=== PATIENT | female | born 1990 | race Caucasian/White ===

== ENCOUNTER 2020-01-25 11:45 | Inpatient (IN) | payer OTHER ==
[~2020-01-25] VITALS: Ht 154.9 cm; Wt 60.0 kg
[2020-01-25] MEDS ORDERED: OXYTOCIN 30U/ 0.9% NaCL 500ML 500 ML IV ONE (12:12)
[2020-01-25] MEDS ORDERED: D5%-LACTATED RINGERS 1,000 ML IV SCH (12:12)
[2020-01-25] MEDS ORDERED: OXYTOCIN 30U/ 0.9% NaCL 500ML 500 ML IV PRN (12:12)
[2020-01-25] MEDS: LACTATED RINGERS 1,000 ML IV SCH ×5 (12:20→23:05)
[2020-01-25] MEDS ORDERED: NEWBORN KIT ONE (12:28)
[2020-01-25] MEDS ORDERED: MISOPROSTOL 200 MCG TABLET ONE (12:29)
[2020-01-25] MEDS ORDERED: LIDOCAINE 1%, 20ML ONE (12:29)
[2020-01-25] MEDS ORDERED: OXYTOCIN 30U/ 0.9% NaCL 500ML 500 ML ONE ×2 (12:29→17:53)
[2020-01-25] MEDS ORDERED: METOCLOPRAMIDE 5 MG/ML, 2ML IVPush PRN (12:30)
[2020-01-25] MEDS ORDERED: FENTANYL PF 100 MCG/2ML IVPush PRN (12:30)
[2020-01-25] MEDS ORDERED: SODIUM CITRATE/CITRIC ACID 30 ML UDC PO PRN (12:30)
[2020-01-25] MEDS ORDERED: ONDANSETRON 2MG/ML, 2ML IVPush PRN ×3 (12:30→17:30)
[2020-01-25] MEDS ORDERED: TERBUTALINE 1 MG/ML, 1ML SQ PRN (12:30)
[2020-01-25] MEDS ORDERED: FENTANYL PF 100 MCG/2ML IV PRN (12:30)
[2020-01-25] MEDS ORDERED: CALCIUM CARBONATE 500 MG TAB.CHEW PO PRN (12:30)
[2020-01-25] MEDS ORDERED: TERBUTALINE 1 MG/ML, 1ML IVPush PRN (12:30)
[2020-01-25 12:38] LABS: BASOPHILS # (AUTO) 0.02 x10^3/uL (0-0.1); BASOPHILS % (AUTO) 0 % (0-1); EOSINOPHILS # (AUTO) 0.04 x10^3/uL (0-0.4); EOSINOPHILS % (AUTO) 1 % (1-7); LYMPHOCYTES # (AUTO) 1.31 x10^3/uL (1-3.4); LYMPHOCYTES % (AUTO) 20 % (22-44); MD NO; MEAN CORPUSCULAR HEMOGLOBIN 29.8 pg (27.0-34.8); MEAN CORPUSCULAR VOLUME 90.3 fL (80-100); MEAN PLATELET VOLUME 7.6 fL (7.4-10.4); MONOCYTES # (AUTO) 0.61 x10^3/uL (0.2-0.8); MONOCYTES % (AUTO) 9 % (2-9); NEUTROPHILS # (AUTO) 4.73 x10^3/uL (1.8-6.8); NEUTROPHILS % (AUTO) 70 % (42-75); PLATELET COUNT 285 x10^3/uL (130-400); RED BLOOD COUNT 3.14 x10^6/uL (3.82-5.3)
[2020-01-25] MEDS ORDERED: BUPIVACAINE 0.25% ONE (12:39)
[2020-01-25] MEDS ORDERED: FENTANYL/BUPIV./NS/PF 250 ML EPIDCONT ONE (12:39)
[2020-01-25 13:17] LABS: MICROSCOPIC INDICATED
[2020-01-25] MEDS ORDERED: FENTANYL/BUPIV./NS/PF 250 ML EPIDCONT SCH ×2 (15:05→17:28)
[2020-01-25] MEDS ORDERED: DIPHENHYDRAMINE 50 MG/ML, 1ML IVPush PRN ×2 (15:30→17:30)
[2020-01-25] MEDS ORDERED: LACTATED RINGERS 1,000 ML IVBOLUS PRN ×2 (15:30→17:30)
[2020-01-25] MEDS ORDERED: NALOXONE 0.4 MG/ML, 1ML IVPush PRN ×2 (15:30→17:30)
[2020-01-25] MEDS ORDERED: EPHEDRINE 50 MG/ML, 1ML IVPush PRN ×2 (15:30→17:30)
[2020-01-25] MEDS ORDERED: LACTATED RINGERS 1,000 ML IV SCH (17:28)
[2020-01-25] MEDS ORDERED: OXYTOCIN 30U/ 0.9% NaCL 500ML 500 ML IV SCH (18:04)
[2020-01-25] MEDS ORDERED: DOCUSATE 100 MG CAPSULE PO PRN (18:30)
[2020-01-25] MEDS ORDERED: ONDANSETRON 2MG/ML, 2ML IV PRN (18:30)
[2020-01-25] MEDS ORDERED: CARBOPROST TROMETHAMINE 250 MCG/ML, 1ML IM PRN (18:30)
[2020-01-25] MEDS ORDERED: MISOPROSTOL 200 MCG TABLET PR PRN (18:30)
[2020-01-25] MEDS ORDERED: ACETAMINOPHEN 325 MG TABLET PO PRN ×2 (18:30)
[2020-01-25] MEDS ORDERED: SIMETHICONE 80 MG CHEW TAB PO PRN (18:30)
[2020-01-25] MEDS ORDERED: METHYLERGONOVINE 0.2 MG/ML IM PRN (18:30)
[2020-01-25] MEDS ORDERED: OXYcodone/APAP 5/325MG TABLET PO PRN ×2 (18:30)
[2020-01-25 20:30] VITALS: BP 111/75
[2020-01-25] MEDS: IBUPROFEN 600 MG TABLET PO PRN (20:47)
[2020-01-26 00:21] VITALS: BP 95/59
[2020-01-26 01:49] LABS: BASOPHILS # (AUTO) 0.04 x10^3/uL (0-0.1); BASOPHILS % (AUTO) 0 % (0-1); EOSINOPHILS # (AUTO) 0.08 x10^3/uL (0-0.4); EOSINOPHILS % (AUTO) 1 % (1-7); LYMPHOCYTES % (AUTO) 15 % (22-44); MD NO; MEAN CORPUSCULAR HEMOGLOBIN 29.3 pg (27.0-34.8); MEAN CORPUSCULAR HGB CONC 31.8 g/dL (32.4-35.8); MEAN CORPUSCULAR VOLUME 92.4 fL (80-100); MEAN PLATELET VOLUME 7.6 fL (7.4-10.4); MONOCYTES # (AUTO) 0.83 x10^3/uL (0.2-0.8); MONOCYTES % (AUTO) 8 % (2-9); NEUTROPHILS # (AUTO) 8.18 x10^3/uL (1.8-6.8); NEUTROPHILS % (AUTO) 76 % (42-75); PLATELET COUNT 260 x10^3/uL (130-400); RED BLOOD COUNT 3.19 x10^6/uL (3.82-5.3); RED CELL DISTRIBUTION WIDTH 13.6 % (9.6-15.2)
[2020-01-26 04:23] VITALS: BP 94/56
[2020-01-26] MEDS: LACTATED RINGERS 1,000 ML IV SCH (05:12)
[2020-01-26] MEDS: IBUPROFEN 600 MG TABLET PO PRN ×2 (06:20→12:43)
[2020-01-26 08:02] VITALS: BP 96/65
[2020-01-26] MEDS ORDERED: PRENATAL VIT/IRON/FA 1 EACH TABLET PO SCH (09:00)
[2020-01-26 12:45] VITALS: BP 99/65
== END 2020-01-26 18:33 | disposition home or self-care (01) | DRG 807 ==
LOC: LDOP 11:45 → LDIP 12:03 → UNDOADMIN 12:03 → LDIP 12:12 → 2NW 22:13
PROVIDERS: ADMIT Obstetrics & Gynecology; ATTEND Obstetrics & Gynecology
PROC: 3E0234Z Introduction of Serum, Toxoid and Vaccine into Muscle, Percutaneous Approach (ICD-10-PCS; principal; 2020-01-25)
PROC: 10E0XZZ Delivery of Products of Conception, External Approach (ICD-10-PCS; 2020-01-25)
PROC: 00HU33Z Insertion of Infusion Device into Spinal Canal, Percutaneous Approach (ICD-10-PCS; 2020-01-25)
PROC: 3E033VJ Introduction of Other Hormone into Peripheral Vein, Percutaneous Approach (ICD-10-PCS; 2020-01-25)
PROC: 10907ZC Drainage of Amniotic Fluid, Therapeutic from Products of Conception, Via Natural or Artificial Opening (ICD-10-PCS; 2020-01-25)
DX: O41.03X0 Oligohydramnios, third trimester, not applicable or unspecified (principal); Z37.0 Single live birth; Z3A.37 37 weeks gestation of pregnancy; Z20.828 Contact with and (suspected) exposure to other viral communicable diseases
CPT/HCPCS: 36415; 81001; 85025; 86592; 86850; 86900; 87086; 87635; G0378; J2590; J3010; J7120